=== PATIENT | male | born 1940 | race Caucasian/White ===

== ENCOUNTER → 2017-02-06 | Outpatient (CLI) | payer MEDICARE, OTHER ==
[2015-07-26 11:02] VITALS: BP 117/72
[~2017-02-06] MED LIST: RIVA15TA PO; RIVA20TA2 PO; TAMS0.4C97 PO
--- NOTE | 2017-02-06 15:05 | CARD ---
APPROVED REPORT EXAM: Two-dimensional and M-mode echocardiogram with Doppler and color Doppler. Other Information Quality : Average Rhythm : NSR INDICATION Murmur 2D DIMENSIONS RVDd2.9 (2.9-3.5cm)Left Atrium(2D)3.2 (1.6-4.0cm) IVSd1.0 (0.7-1.1cm)Aortic Root(2D)2.7 (2.0-3.7cm) LVDd5.1 (3.9-5.9cm)LVOT Diameter2.2 (1.8-2.4cm) PWd0.9 (0.7-1.1cm)LVDs3.0 (2.5-4.0cm) FS (%) 31.0 %SV87.4 ml LVEF(%)61.6 (>50%) Aortic Valve AoV Peak Rene.212.7cm/sAoV VTI37.9cm AO Peak GR.18.1mmHgLVOT Peak Rene.140.0cm/s LVOT VTI 25.14cmAO Mean GR.10mmHg RACHEL (VMAX)2.14qn9XLS (VTI)2.51cm2 Mitral Valve MV E Fkzhxwds69.0cm/sMV DECEL [id number] MV A Pgpuoefe67.9cm/sMV [id number] E/A Ratio0.9MV A [id number] MVA (PHT)3.70cm2 Tricuspid Valve TR P. Ffmnwtif887bh/sRAP [id number] TR Peak Gr.[id number] LEFT VENTRICLE The left ventricle is normal size. There is normal left ventricular wall thickness. Left ventricle sy stolic function is normal. The Ejection Fraction is 60-65%. There is normal LV segmental wall motion. The left ventricular diastolic function and filling is normal for age. RIGHT VENTRICLE The right ventricle is normal size. The right ventricular systolic function is normal. ATRIA The left atrium size is normal. The right atrium size is normal. The interatrial septum is intact wit h no evidence for an atrial septal defect or patent foramen ovale as noted on 2-D or Doppler imaging. AORTIC VALVE The aortic valve is mildly sclerotic. The aortic valve is trileaflet but the left and non-coronary cu sps are calcified and partially fused. Doppler and Color Flow revealed no significant aortic regurgit ation. Minimal aortic stenosis with a MG of 10 mm Hg. MITRAL VALVE Mitral annular calcification is mild. There is no mitral valve stenosis. Doppler and Color Flow revea led no mitral valve regurgitation noted. TRICUSPID VALVE The tricuspid valve is normal in structure. Doppler and Color Flow revealed mild tricuspid regurgitat ion. The PA pressure was estimated at 34 mmHg. There is no tricuspid valve stenosis. PULMONIC VALVE The pulmonic valve is not well visualized. Doppler and Color Flow revealed no pulmonic valvular regur gitation. There is no pulmonic valvular stenosis. GREAT VESSELS The aortic root is normal in size. The ascending aorta is normal in size. Pulmonary veins not recorde d. The IVC is normal in size and collapses >50% with inspiration. PERICARDIAL EFFUSION There is no evidence of significant pericardial effusion. Critical Notification Critical Value: No <Conclusion> Left ventricle systolic function is normal. The Ejection Fraction is 60-65%. There is normal LV segmental wall motion. Trivial aortic stenosis. No other significant valvular disease.
== END | disposition home or self-care (01) ==
LOC: ECHO 13:58
PROVIDERS: ATTEND Family Medicine
DX: I35.0 Nonrheumatic aortic (valve) stenosis (principal)
CPT/HCPCS: 93306

== ENCOUNTER → 2017-07-13 | Outpatient (CLI) | payer MEDICARE, OTHER ==
[2015-07-26 11:02] VITALS: BP 117/72
--- NOTE | 2017-07-13 15:12 | RAD ---
Bilateral duplex carotid sonography History: Right carotid bruit. Duplex sonography of the cervical portion of both carotid arteries was performed. Findings: Right side: Peak systolic flow velocity of the CCA is 76 cm/sec. Peak systolic flow velocity of the ICA is 73 cm/sec. The ICA/CCA ratio is 0.96. Peak end diastolic flow velocity of the ICA is 25 cm/sec. The peak systolic velocity of the ECA is 96 cm/sec. Mild intimal thickening is seen involving the common carotid artery. Mild calcified and noncalcified plaquing is seen at the carotid bulb. Left side: Peak systolic flow velocity of the CCA is 92 cm/sec. Peak systolic flow velocity of the ICA is 76 cm/sec. The ICA/CCA ratio is 0.83. Peak end diastolic flow velocity of the ICA is 29 cm/sec. Peak systolic flow velocity of the ECA is 91 cm/sec. Mild intimal thickening is seen involving the common carotid artery. Mild calcified and noncalcified plaquing is seen at the carotid bulb. Vertebral arteries: Bilateral vertebral arteries demonstrate antegrade flow. Impression: 1. No hemodynamically significant internal carotid artery stenosis identified. Note: Stenosis calculations for Doppler studies are derived from validated velocity criteria which are known to correlate with NASCET methodology of determining stenosis.
== END | disposition home or self-care (01) ==
LOC: US 13:27
PROVIDERS: ATTEND Family Medicine
DX: R09.89 Other specified symptoms and signs involving the circulatory and respiratory systems (principal); Z87.891 Personal history of nicotine dependence
CPT/HCPCS: 93880